=== PATIENT | male | born 1955 | race Caucasian/White ===

== ENCOUNTER 2017-10-07 00:19 | Emergency (ER) | payer OTHER ==
[~2017-10-07] VITALS: Ht 185.4 cm; Wt 105.2 kg
[2017-10-07 00:19] VITALS: BP 179/91
[~2017-10-07 00:19] MED LIST: ASPIR 8181 MG; B12INJ; CALCIUM ACETAT667 M2; COLACE100 MG; COUMADIN 3 MG TA3 M1; LEVOTHYROXINE0.2 M1; LIPITOR40 MG; LISINOPRIL10 MG; LOPID600 MG; LOPRESSOR100 M1; NEURONTIN 300300 M1; NITROGLYCERIN0.4 MG; OMEPRAZOLE20 M2; PERCOCET; PLAVIX 75 MG TA75 M1; REMERON15 MG; RENAL CAPS SOFTG1 MG; SERTRALINE HCL50 MG; TRAZODONE HCL50 MG; VITAMIN D 5050000 I1
[2017-10-07 00:52] LABS: HEMATOCRIT 24.7 % (42.0-52.0); HEMOGLOBIN 7.8 gm/dL (14.0-18.0); MCH 28.5 pg (26.0-34.0); MCHC 31.7 g/dL (28.0-37.0); MCV 89.9 fL (80.0-100.0); MPV 7.8 fl. (7.2-11.1); NUCLEATED RBCS 0 /100WBC; PLATELET COUNT* 378 thou/uL (150-400); RBC 2.74 mil/uL (4.50-6.00); RDW-CV 19.5 % (10.5-14.5); WBC 11.3 thou/uL (4.0-11.0)
[2017-10-07 00:56] LABS: ANION GAP 15 mmol/L (7-16); BUN 47 mg/dL (7-18); CHLORIDE 101 mmol/L (98-107); CO2 24 mmol/L (21-32); CREATININE 8.4 mg/dL (0.6-1.3); GLUCOSE 151 mg/dL (70-99); POTASSIUM 4.9 mmol/L (3.5-5.1); SODIUM 140 mmol/L (136-145)
[2017-10-07 00:59] LABS: INR 1.2; PROTIME 11.6 Seconds (9.20-11.50)
[2017-10-07 01:07] LABS: ALBUMIN 2.2 g/dL (3.4-5.0); ALKALINE PHOSPHATASE 180 U/L (46-116); NT-PRO BRAIN NAT PEPTIDE > 35000 pg/mL (<300); SGOT 17 U/L (15-37); SGPT 16 U/L (30-65); TOTAL BILIRUBIN 0.4 mg/dL (<0.1-1.0); TOTAL PROTEIN 7.7 g/dL (6.4-8.2); TROPONIN-I LEVEL <0.06 ng/mL (<0.06)
[2017-10-07 01:34] LABS: ABSOLUTE BASOPHILS 0.1 thou/uL (0.0-0.2); ABSOLUTE EOSINOPHILS 0.2 thou/uL (0.0-0.7); ABSOLUTE LYMPHOCYTES 0.7 thou/uL (0.8-5.3); ABSOLUTE MONOCYTES 0.5 thou/uL (0.0-1.2); ABSOLUTE NEUTROPHILS 9.8 thou/uL (1.6-8.1)
[2017-10-07 01:35] LABS: GIANT PLATELETS RARE; PLATELET ESTIMATE ADEQUATE
[2017-10-07 01:36] LABS: ANISOCYTOSIS 1+; LARGE PLATELETS OCCASIONAL; POLYCHROMASIA 1+
[2017-10-07 01:36] LABS: BE -2.9 mmol/L (-2 to +3); HCO3 22.1 mmol/L (22.0-26.0); PCO2 39.2 mmHg (35.0-45.0); PO2 119.5 mmHg (75.0-100.0); pH 7.369 (7.340-7.450)
--- NOTE | 2017-10-07 03:00 | NUR ---
THIS PATIENT WAS TRANSFERRED AT 0300 WITH THE IVP LEVAQUIN INFUSING AT THE TIME PT TRANSFERRED TO ANOTHER ACUTE CARE FACILITY.
[2017-10-07 03:02] VITALS: BP 159/82
--- NOTE | 2017-10-07 09:59 | EKG ---
[place] [address] ELECTROCARDIOGRAM REPORT Name: WILLAGUSTINASALMA HERR Room: [facility]#: [id number] Admission: 10/07/17 Attend Phys: Discharge: 10/07/17 Date of : 55 Report #: [id number] THIS REPORT FOR: //name// [facility] ED Test Date: 2017-10-07 Test Time: 00:30:24 Pat Name: SALMA LIVINGSTON Department: Room: [facility] Gender: Engine Dispatcher: VIVIANE Guy : 1955 Requested By: Janee Gomez Order Number: [id number] MD: Arnav Vee Measurements Intervals [place] Rate: 71 P: 37 ID: [id number] QRS: 36 QRSD: 96 T: 82 QT: 422 QTc: 459 Interpretive Statements Sinus rhythm nonspecific st changes Compared to ECG 03/04/2017 04:44:36 no change Electronically Signed On 10-07-2017 9:59:24 CDT by Arnav Vee [email or web address] <ELECTRONICALLY SIGNED> By: Arnav Vee MD, [facility] 10/07/17 0959 003 Arnav Vee MD, FACC /EPI
== END 2017-10-07 03:02 | disposition short-term general hospital (02) ==
LOC: M.ERS 00:19 → M.TBA-ER 01:06 → M.ERS 03:02
PROVIDERS: Emergency Medicine
DX: R06.03 Acute respiratory distress (principal); J18.9 Pneumonia, unspecified organism; E11.22 Type 2 diabetes mellitus with diabetic chronic kidney disease; I12.0 Hypertensive chronic kidney disease with stage 5 chronic kidney disease or end stage renal disease; N18.6 End stage renal disease; J44.9 Chronic obstructive pulmonary disease, unspecified; F32.9 Major depressive disorder, single episode, unspecified; Z88.0 Allergy status to penicillin; Z87.891 Personal history of nicotine dependence